=== PATIENT | female | born 1945 | race Caucasian/White ===

== ENCOUNTER 2025-09-06 06:08 | Day surgery (SDC) | payer MEDICARE, OTHER ==
[2025-09-04 10:16] LABS: MEAN PLATELET VOLUME 8.3 FL (7.4-10.4); PRE OP HEMATOCRIT 38.8 % (35.0-45.0); PRE OP HEMOGLOBIN 13.0 g/dL (12.0-16.0); PRE OP PLATELET COUNT 196 X10'3 (140-440); PRE OP WHITE BLOOD COUNT 6.5 10'3 (4.8-10.8); RED CELL DISTRIBUTION WIDTH 14.5 % (11.5-14.5)
[2025-09-04 10:30] LABS: CREATININE 0.99 MG/DL (0.40-0.90); PRE OP ANION GAP 5 (8-16); PRE OP BILIRUB, TOTAL 0.3 MG/DL (0.0-1.0); PRE OP GLUCOSE 119 MG/DL (70-104); PRE OP POTASSIUM 4.0 MMOL/L (3.4-5.1); PRE OP SODIUM 140 MMOL/L (135-145); TOTAL CARBON DIOXIDE 29.6 MMOL/L (24-32); eGFR 54 ML/MIN
[2025-09-04 10:31] LABS: PRE OP ALT 11 U/L (30-65); PRE OP AST 15 U/L (10-37)
--- NOTE | 2025-09-04 12:44 | RADIOLOGY REPORT ---
Procedure: CT CT CHEST ION Reason for study/Clinical History: LOCALIZED SWELLING,MASS,AND LUMP Comparison Study: None Exam Date: 09/04/2025 10:08 AM TECHNIQUE: Multidetector CT of the chest was performed from the lung apices to the upper abdomen without the use of intravenous contract. Axial, coronal and sagittal multiplanar reformats were performed. Radiation Dose Information: CT Dose: CTDI volume is 25 mGy. Dose-length product is 250 mGy*cm The dose indicators for CT are the volume Computed Tomography (CT) Dose Index (CTDIvol) and the Dose Length Product (DLP), and are measured in units of mGy and mGy-cm, respectively. These indicators are not patient dose, but values generated from the CT scanner acquisition factors. The report includes radiation exposure data for exposures received during this examination. FINDINGS: Lower neck: Normal thyroid. Lungs: Spiculated 3 cm right upper lobe lung mass. This is highly suspicious for neoplastic process Heart/Vascular Structures: Normal heart size. No pericardial effusion. Lymph Nodes: No adenopathy Pleura: No pleural effusion or significant pneumothorax. Musculoskeletal: No acute osseous abnormality. Soft tissues: Normal. Upper abdomen: Limited portions of the upper abdomen are unremarkable. IMPRESSION: Spiculated 3 cm right upper lobe lung mass. This is highly suspicious for neoplastic process Radiation optimization: All CT scans at this facility use at least one of these dose optimization techniques: automated exposure control mA and/or kV adjustment per patient size (includes targeted exams where dose is matched to clinical indication) or iterative reconstruction.
[2025-09-06] VITALS (14 sets, daily range): BP systolic 112–174; BP diastolic 52–91; PULSE 68–98; RESP 14–24; TEMP 98.3; O2SAT 91–100
[~2025-09-06] VITALS: Ht 165.1 cm; Wt 85.2 kg
[~2025-09-06 06:08] MED LIST: ALLO100T PO; ASPI81TA52 PO; CETI10CA PO; CHOL25CA2 PO; CINN500C16 PO; DOCUMENT DATE & TIME OF BETA-BLOCKER PO ONE; FAMO-49 PO; LEVO137T24 PO; LOVA10TA PO; METO-395 PO; OMEG-167 PO; SACC250C9 PO; TEMA15CA5 PO; UBID100C16 PO; VALS160T30 PO
[2025-09-06] MEDS: ringers solution, lacted 1,000 ML IV SCH (07:17)
[2025-09-06] MEDS ORDERED: HYDROmorphone/PF 0.2 MG/ML SYRINGE IV PRN ×2 (08:05)
[2025-09-06] MEDS ORDERED: hydrALAZINE 20mg/ml inj. IV PRN (08:05)
[2025-09-06] MEDS ORDERED: ringers solution, lacted 1,000 ML IV SCH (08:05)
[2025-09-06] MEDS ORDERED: acetaminophen 1,000mg/100ml IV 100 ML IV PRN (08:05)
[2025-09-06] MEDS ORDERED: labetalol 20mg/4ml (5mg/ml) syringe IV PRN (08:05)
[2025-09-06] MEDS ORDERED: morphine 4 MG/ML inj SYRINge IV PRN (08:05)
[2025-09-06] MEDS ORDERED: fentaNYL/PF 50MCG/1 ML 2ML syringe ONE (08:12)
[2025-09-06] MEDS ORDERED: midazolam 1 mg/ML 2ml injection ONE (08:17)
[2025-09-06] MEDS ORDERED: dexamethasone sod phosphate 4mg/ml inj. ONE (08:41)
[2025-09-06] MEDS ORDERED: rocuronium 10mg/ml inj IV ONE (08:41)
[2025-09-06] MEDS ORDERED: propofol inj 20 ML IV ONE (08:41)
[2025-09-06] MEDS ORDERED: LIDOcaine 2% (20mg/ml) 5ml vial ONE (08:41)
[2025-09-06] MEDS ORDERED: ondansetron/PF 4mg/2ml inj ONE (08:42)
[2025-09-06] MEDS ORDERED: phenylephrine 10mg/ml inj. ONE (08:42)
[2025-09-06] MEDS ORDERED: glycopyrrolate 0.2mg/ml inj ONE (09:17)
[2025-09-06] MEDS: ondansetron/PF 4mg/2ml inj IV PRN (09:34)
--- NOTE | 2025-09-06 17:35 | OPERATIVE REPORT ---
DATE OF SURGERY: 09/06/2025 DICTATING PHYSICIAN: Schuyler Jones MD Procedure Note PROCEDURES: * Bronchoscopy with a robotic bronchoscopy system. * EBUS. INDICATIONS: Patient with a spiculated mass on the right side of the chest. POSTOPERATIVE DIAGNOSIS: Spiculated mass on the right side of the chest. DESCRIPTION OF PROCEDURE: The patient had an intubation per anesthesia. Anesthesia was done per protocol. I had a robotic bronchoscopy with the [employer] bronchoscopy system, multiple radial ultrasounds, EBUS, BAL, bronchial washings, and also transbronchial biopsies and transbronchial fine needle aspirations in addition to multiple suctionings of both bronchi. The patient has already had a virtual mapping already set up per the robotic bronchoscopy system. I navigated the catheter into the mass. We got a good signal with the ultrasound I pulled out the camera and then put in an ultrasound right in the middle of the mass, so we 10 multiple passes. We did about 5 passes to improve the chance to get a good diagnosis. After we got transbronchial biopsy and also transbronchial fine needle aspirations, we switched over to the endobronchial type bronchoscope. There were some paratracheal very small nodules, lymph nodes that are present on zones 4R, 10R, and 7. We obtained passes there and also obtained a BAL on the right upper lobe. The patient tolerated the procedure well. No complications. We made sure that there was no pneumothorax on fluoroscopy. Schuyler Jones MD TID: [id number] RECEIPT: [id number] CHRIS/NELSON
--- NOTE | 2025-09-10 15:00 | PATHOLOGY REPORT ---
[facility] [address] [place] [address] NON-NETWORK ACCOUNT MANAGER CYTOLOGY REPORT CaseNumber: [id number] Surgeon:Schuyler Jones M.D. CLINICAL INFORMATION CLINICAL INFORMATION: Swelling, mass, lump. Pt with RT LL mass, able to get multple samples. DIAGNOSIS DIAGNOSIS: A.LUNG, RIGHT MIDDLE LOBE; BIOPSY - NON-SMALL CELL CARCINOMA, WITH MIXED ADENOSQUAMOUS FEATURES. DIAGNOSIS: B.LUNG ,RIGHT MIDDLE LOBE; FINE NEEDLE ASPIRATION - RARE ATYPICAL CELLS, CONSISTENT WITH NON-SMALL CELL CARCINOMA. DIAGNOSIS: C.LYMPH NODE, STATION 4L; FINE NEEDLE ASPIRATION - SCANT BENIGN LYMPHOID TISSUE. DIAGNOSIS: D.LYMPH NODE, STATION 10L; FINE NEEDLE ASPIRATION - BENIGN BRONCHIAL EPITHELIUM. - BENIGN LYMPHOID TISSUE. Comment: As a part of intradepartmental vice president quality assurance, Dr. Vaz has reviewed this case and concurs. MICROSCOPIC DESCRIPTION A. LUNG, RIGHT MIDDLE LOBE MICROSCOPIC DESCRIPTION: 1 H&E-stained slide is examined. It shows a very rare fragments of malignant squamoid cells with high NC ratios, and polygonal eosinophilic cytoplasm, intermixed with acute inflammation. The background sh ows abundant necrotic material and alveolar lung tissue. Immunohistochemical stains show that the malignant cells are positive for p40 (patchy), CK5/6 (patchy), CK7, and TTF-1 (patchy). B. LUNG ,RIGHT MIDDLE LOBE MICROSCOPIC DESCRIPTION: 1 H&E stained cellblock, and 1 double cytospin slide are examined. The cellblock shows predominantly proteinaceous fluid with very rare fragments of necrotic lung tissue. Extremely rare atypical squamoid cells are present. The double cytospin slide shows similar findings C. LYMPH NODE, STATION 4L MICROSCOPIC DESCRIPTION: 1 H&E stained cellblock, 1 double cytospin slide are examined. The cellblock is acellular. The double cytospin slide shows extremely scant polymorphic lymphoid tissue and bronchial epithelium. There is no evidence of malignancy. D. LYMPH NODE, STATION 10L MICROSCOPIC DESCRIPTION: A1 H&E-stained cellblock and 1 double cytospin slide are examined. The H&E-stained cellblock shows fragments of bronchial mucosa to include cartilage, lymphoid tissue, numerous histiocytes, and scattered benign bronchial epithelial cells. There is no evidence of malignancy. GROSS DESCRIPTION A. LUNG, RIGHT MIDDLE LOBE GROSS DESCRIPTION: Received in a container of formalin labeled with the patient's name, number, and "RML BX "is is a 0.6 x 0.5 x 0.3 cm aggregate of irregularly shaped pieces of braun tissue submitted entirely as A1.The time at which the specimen was removed was not provided. The time at which the specimen was placed in formalin was not provided. B. LUNG ,RIGHT MIDDLE LOBE GROSS DESCRIPTION: Specimen is received in cytostat red, labeled with the patient's name and identified as "RML FNA", having a total volume of 17.5 mL of one bottle of cloudy cytostat red. One double cytospin slide and one cell block is prepared. The cell block is submitted as B1. The time at which the specimen was collected was 08. The time at which the specimen was placed in formalin was 0845. (wendi) C. LYMPH NODE, STATION 4L GROSS DESCRIPTION: Specimen is received in cytostat red, labeled with the patient's name and identified as "Station 4L", having a total volume of 12.5mL of one bottle of clear cytostat red. One double cytospin slide and one cell block is prepared. The cell block is submitted as C1. The time at which the specimen was collected was 09. The time at which the specimen was placed in formalin was 09. (wendi) D. LYMPH NODE, STATION 10L GROSS DESCRIPTION: Specimen is received in cytostat red, labeled with the patient's name and identified as "Station 10L", having a total volume of 7.5mL of one bottle of clear cytostat red. One double cytospin slide and one cell block is prepared. The cell block is submitted as D1. The time at which the specimen was collected was 910. The time at which the specimen was placed in formalin was 910. (mauro) Electronically signed by: Mark Dawn, 09/10/2025 2:22:00 PM
== END 2025-09-06 11:26 | disposition home or self-care (01) ==
LOC: PAS 06:08
PROVIDERS: ATTEND Internal Medicine Critical Care Medicine
DX: R22.2 Localized swelling, mass and lump, trunk (principal); C34.2 Malignant neoplasm of middle lobe, bronchus or lung; I10 Essential (primary) hypertension; E11.9 Type 2 diabetes mellitus without complications; E03.9 Hypothyroidism, unspecified; E78.5 Hyperlipidemia, unspecified; J43.9 Emphysema, unspecified; G43.909 Migraine, unspecified, not intractable, without status migrainosus; M10.9 Gout, unspecified; M19.90 Unspecified osteoarthritis, unspecified site; Z87.891 Personal history of nicotine dependence; Z79.890 Hormone replacement therapy; Z79.899 Other long term (current) drug therapy; Z90.710 Acquired absence of both cervix and uterus; Z98.891 History of uterine scar from previous surgery; Z98.890 Other specified postprocedural states; Z88.0 Allergy status to penicillin; Z88.1 Allergy status to other antibiotic agents; Z88.2 Allergy status to sulfonamides; Z88.8 Allergy status to other drugs, medicaments and biological substances
CPT/HCPCS: 31624; 31627; 31628; 31653; 31654; 36415; 71250; 80053; 82948; 85025; 87015; 87070; 87116; 87206; 88173; 88305; 88341; 88342; 94760; A4618; J1100; J2003; J2250; J2371; J2405; J2704; J2710; J3010; J3490; J7120; Z7506; Z7508; Z7512; Z7610; 31622; 31625; 31626